=== PATIENT | male | born 1950 | race Caucasian/White ===

== ENCOUNTER 2018-03-12 11:14 | Emergency (ER) | payer MEDICARE ==
[~2018-03-12] VITALS: Ht 170.2 cm; Wt 93.0 kg
[~2018-03-12 11:14] MED LIST: BACTRIM DS1 TAB PO; CHLORTHALIDONE25 MG PO; DILTIAZEM180 M1 PO; FLEXERIL PO; LOSARTAN POT25 MG PO; MUPIROCIN2 % EX; TENORMIN25 M1 PO; VISTARIL PO
[2018-03-12] MEDS ORDERED: CEPHALEXIN500 M1 PO (12:42)
[2018-03-12 12:45] VITALS: BP 144/83
== END 2018-03-12 12:45 | disposition home or self-care (01) ==
LOC: ED 11:14
PROC: 06BY0ZC Excision of Hemorrhoidal Plexus, Open Approach (ICD-10-PCS; principal; 2018-03-12)
DX: K64.5 Perianal venous thrombosis (principal); I10 Essential (primary) hypertension

== ENCOUNTER → 2018-04-12 | Outpatient (REF) | payer MEDICARE ==
[~2018-04-12] MED LIST changes: +CEPHALEXIN500 M1 PO
[2018-04-12 13:14] LABS: HEMATOCRIT 41.1 % (39.0-50.0); HEMOGLOBIN 14.2 g/dl (14.0-18.0); IMMATURE GRANULOCYTES 0.4 % (0.0-5.0); MEAN CELL VOLUME 96.3 fL CALC (80.0-100.0); MEAN CORPUSCULAR HGB 33.3 pG CALC (26.0-32.0); MEAN CORPUSCULAR HGB CONC 34.5 g/L CALC (32.0-36.0); RED BLOOD COUNT 4.27 mill/uL (4.70-6.10); RED CELL DISTRI WIDTH 12.9 % (11.5-15.5)
[2018-04-12 13:35] LABS: ALBUMIN 4.4 g/dL (3.2-5.0); ALKALINE PHOSPHATASE 67 u/l (38-126); ANION GAP 18 (6-22 (CALC)); BILIRUBIN, TOTAL 1.1 mg/dL (0.0-1.4); BUN 11 mg/dL (8-23); BUN/CREATININE RATIO 13 (12-20 (CALC)); CALCULATED LDLCHOLESTEROL 124 mg/dL (62-129 (CALC)); CARBON DIOXIDE 26 mmol/l (22-30); CHLORIDE 96 mmol/l (95-108); CHOLESTEROL HDL RATIO 4.4 (<4.4 (CALC)); CREATININE 0.8 mg/dL (0.7-1.3); GFR > 60 ML/MIN (>=60 (CALC)); GFR FOR AFR.AMER. > 60 ML/MIN (>=60 (CALC)); HDL CHOLESTEROL 44 mg/dL (>=40); POTASSIUM 4.4 mmol/l (3.5-5.1); SGOT/AST 75 u/l (19-48); SODIUM 135 mmol/l (137-146); TOTAL CHOLESTEROL 194 mg/dl (0-199); TOTAL PROTEIN 6.1 g/dL (6.3-8.2); TOTAL TRIGLYCERIDES 131 mg/dl (30-149); VLDL CHOLESTROL 26 mg/dl (4-45 (CALC))
[2018-04-12 14:05] LABS: TSH, 3RD GENERATION 2.74 uIU/mL (0.47 - 4.68)
== END | disposition home or self-care (01) ==
LOC: LAB 11:49
PROVIDERS: ATTEND Nurse Practitioner Family
DX: I10 Essential (primary) hypertension (principal); N40.0 Benign prostatic hyperplasia without lower urinary tract symptoms; R73.9 Hyperglycemia, unspecified; R74.8 Abnormal levels of other serum enzymes

== ENCOUNTER 2021-05-18 00:02 | Emergency (ER) | payer MEDICARE ==
[~2021-05-18] VITALS: Ht 170.2 cm; Wt 100.0 kg
[~2021-05-18 00:02] MED LIST changes: +ASPIRIN ADULT L81 M2 PO; +B121000 MC1; +CBD GUMMIES PO; +D350 MCG; +LISINOPRIL5 MG PO; +MULTI 50+ PO
[2021-05-18 00:18] VITALS: BP 122/62
[2021-05-18 00:31] VITALS: BP 111/57
[2021-05-18 00:45] VITALS: BP 116/62
[2021-05-18 00:54] LABS: ALBUMIN 3.7 g/dL (3.2-5.0); BILIRUBIN, TOTAL 0.8 mg/dL (0.0-1.4); CREATININE 1.5 mg/dL (0.7-1.3); IMMATURE GRANULOCYTES 0.4 % (0.0-5.0); MAGNESIUM 1.4 mg/dL (1.6-2.3); MEAN CELL VOLUME 87.8 fL CALC (80.0-100.0); MEAN CORPUSCULAR HGB 27.9 pG CALC (26.0-32.0); MEAN CORPUSCULAR HGB CONC 31.8 g/dL CAL (32.0-36.0); NEUT# 7.68 thou/uL (1.82-7.42); POTASSIUM 3.9 mmol/l (3.5-5.1); RED BLOOD COUNT 3.44 mill/uL (4.70-6.10); RED CELL DISTRI WIDTH 15.7 % (11.5-15.5); TOTAL PROTEIN 7.1 g/dL (6.3-8.2)
[2021-05-18 00:55] LABS: HEMATOCRIT 30.2 % (39.0-50.0); HEMOGLOBIN 9.6 g/dl (14.0-18.0)
[2021-05-18] MEDS ORDERED: SOD CHLORIDE1 G2 OD (02:24)
[2021-05-18] MEDS ORDERED: MECLIZINE25 MG PO (02:25)
[2021-05-18 02:31] VITALS: BP 123/68
[2021-05-18 02:46] VITALS: BP 113/41
== END 2021-05-18 03:16 | disposition home or self-care (01) ==
LOC: ED 00:02
PROVIDERS: Family Medicine
DX: R42 Dizziness and giddiness (principal); E87.1 Hypo-osmolality and hyponatremia; E83.42 Hypomagnesemia; F10.10 Alcohol abuse, uncomplicated; I10 Essential (primary) hypertension

== ENCOUNTER 2021-05-20 11:10 | Inpatient (IN) | payer OTHER, MEDICARE ==
[2021-05-20] VITALS (19 sets, daily range): BP systolic 58–114; BP diastolic 30–63
[~2021-05-20] VITALS: Ht 170.2 cm; Wt 100.0 kg
[~2021-05-20 11:10] MED LIST changes: +MECLIZINE25 MG PO; +SOD CHLORIDE1 G2 OD
[2021-05-20] MEDS ORDERED: K-TABS10 MEQ PO (11:46)
[2021-05-20 12:29] LABS: HEMATOCRIT 30.2 % (39.0-50.0); HEMOGLOBIN 9.6 g/dl (14.0-18.0); MEAN CELL VOLUME 88.3 fL CALC (80.0-100.0); MEAN CORPUSCULAR HGB 28.1 pG CALC (26.0-32.0); MEAN CORPUSCULAR HGB CONC 31.8 g/dL CAL (32.0-36.0); NEUT# 10.75 thou/uL (1.82-7.42); RED BLOOD COUNT 3.42 mill/uL (4.70-6.10); RED CELL DISTRI WIDTH 15.8 % (11.5-15.5)
[2021-05-20 12:50] LABS: ALBUMIN 3.9 g/dL (3.2-5.0); TOTAL PROTEIN 7.3 g/dL (6.3-8.2)
[2021-05-20 12:57] LABS: BILIRUBIN, TOTAL 1.3 mg/dL (0.0-1.4); CREATININE 5.2 mg/dL (0.7-1.3); MAGNESIUM 2.1 mg/dL (1.6-2.3); POTASSIUM 4.9 mmol/l (3.5-5.1)
[2021-05-20 14:30] LABS: URINE BILIRUBIN - DIPSTICK SMALL (NEGATIVE); URINE BLOOD DIPSTICK LARGE (NEGATIVE); URINE GLUCOSE - DIPSTICK NEGATIVE (NEGATIVE); URINE KETONE TRACE mg/dL (NEGATIVE); URINE LEUK ESTERASE TRACE (NEGATIVE); URINE NITRITE - DIPSTICK NEGATIVE (Negative); URINE PROTEIN - DIPSTICK >=300 mg/dL (NEG-TRACE); URINE UROBILINOGEN - DIPSTICK 0.2 E.U./dL (0.2)
[2021-05-20 14:31] LABS: URINE COLOR BROWN; URINE EPITHELIAL CELLS MODERATE EPI/hpf (0-FEW); URINE MUCUS MODERATE hpf (NONE-FEW); URINE RBC 50-100 RBC/hpf (0-5); URINE WBC 0-2 WBC/hpf (0-5)
[2021-05-21] VITALS: BP 124/49
[2021-05-21 04:00] VITALS: BP 144/50
[2021-05-21 07:57] VITALS: BP 98/47
[2021-05-21 10:34] VITALS: BP 112/46
== END 2021-05-21 15:00 | disposition hospice, inpatient (51) | DRG 951 ==
LOC: ED 11:10 → ED-I 12:02 → ED 12:02 → ED-I 15:35 → ED 16:05 → MS2 16:05
PROVIDERS: Internal Medicine; ADMIT Hospitalist; ATTEND Hospitalist
DX: Z51.5 Encounter for palliative care (principal); E87.2 Acidosis; N17.9 Acute kidney failure, unspecified; N39.0 Urinary tract infection, site not specified; I95.9 Hypotension, unspecified; I44.1 Atrioventricular block, second degree; C67.9 Malignant neoplasm of bladder, unspecified; R09.02 Hypoxemia; I12.9 Hypertensive chronic kidney disease with stage 1 through stage 4 chronic kidney disease, or unspecified chronic kidney disease; N18.9 Chronic kidney disease, unspecified; Z99.81 Dependence on supplemental oxygen; Z66 Do not resuscitate; Z20.822 Contact with and (suspected) exposure to COVID-19
CPT/HCPCS: J2060; S0166